=== PATIENT | female | born 1940 | race Caucasian/White ===

== ENCOUNTER 2017-01-11 14:25 | Emergency (ER) | payer MEDICARE ==
[2017-01-11 18:19] LABS: BASOPHILS 0.4 % (0-2); EOSINOPHILS 7.6 % (0-7); HEMATOCRIT 47.7 % (36.0-48.0); HEMOGLOBIN 16.4 g/dL (12-16); IMMATURE GRANULOCYTES 1.2 % (0-5); LYMPHOCYTES 25.9 % (15-50); MCH 31.7 pg (26.0-34.0); MCHC 34.4 g/dL (31.0-37.0); MCV 92.1 fL (80.0-100.0); MEAN PLATELET VOLUME 9.7 fL (7.4-10.4); MONOCYTES 7.5 % (2-11); NEUTROPHILS 57.4 % (40-80); PLATELET COUNT 224 10x3/uL (130-400); RBC 5.18 10x6/uL (4.00-5.40); RDW 12.7 % (11.5-14.5); WBC 13.6 10x3/uL (4.8-10.8)
== END 2017-01-11 19:23 | disposition home or self-care (01) ==
LOC: D.ER 14:25
PROVIDERS: Nurse Practitioner Acute Care
DX: L50.9 Urticaria, unspecified (principal); L29.9 Pruritus, unspecified; E11.9 Type 2 diabetes mellitus without complications

== ENCOUNTER → 2017-11-04 08:20 | Outpatient (CLI) | payer MEDICARE | END | disposition home or self-care (01) | LOC: D.NM 08:20 | DX: R10.13 Epigastric pain (principal); R11.0 Nausea ==

== ENCOUNTER → 2017-11-05 10:42 | Outpatient (CLI) | payer MEDICARE | END | disposition home or self-care (01) | LOC: D.RAD 10:15 | DX: R10.9 Unspecified abdominal pain (principal); E11.9 Type 2 diabetes mellitus without complications; Z85.038 Personal history of other malignant neoplasm of large intestine ==

== ENCOUNTER → 2017-11-08 08:38 | Outpatient (CLI) | payer MEDICARE | END | disposition home or self-care (01) | LOC: D.RAD 08:38 | DX: R14.1 Gas pain (principal); E11.9 Type 2 diabetes mellitus without complications; Z85.038 Personal history of other malignant neoplasm of large intestine ==

== ENCOUNTER 2018-01-04 07:40 | Day surgery (SDC) | payer MEDICARE ==
[~2018-01-04] VITALS: Ht 160 cm; Wt 60.8 kg
--- NOTE | ~2018-01-04 | OP ---
PATIENT NAME: MATTHEW TREJO MEDICAL RECORD: [id number] :44 LOCATION:D.OPS ADMISSION DATE: SURGEON: LARISSA BARR MD DATE OF OPERATION: 01/04/2018 PRINCIPAL DIAGNOSIS: History of tattooed colon polyp involving the distal ascending colon, it is a 3 cm polyp. POSTOPERATIVE DIAGNOSES: tattooed colon polyp involving the distal ascending colon, it is a cm polyp with 2 other sessile polyps, one 7 cm and one 8 cm. PROCEDURES: 1. Total colonoscopy to cecum. 2. Hot biopsy forceps polypectomies times 2. 3. Colonic polypectomy utilizing cold endoscopic biopsies and then ablation of the remaining polyp with the argon plasma food and drug inspector utilizing the right colon setting in the forced mode. SURGEON: Larissa Barr MD GIZZARD PULLER: None. BLOOD LOSS: Minimal. ANESTHESIA: General. COMPLICATIONS: None. ENDOSCOPIC COURSE: The patient was conveyed to the operating room electively on 01/04/2018. General anesthesia was induced by the anesthesia staff. The patient was placed in the Turner position. A digital rectal examination was performed. A colonoscope was inserted through the anus. It was easily advanced to the cecum. Upon withdrawal, I irrigated and aspirated extensively. The pullback was greater than 18-minute pullback. A combination of normal imaging and narrow band imaging were utilized. I dragged the folds. The prep was adequate. Two hot biopsy forceps polypectomies were performed. I then identified the tattooed polyp. This was biopsied multiply utilizing the cold endoscopic biopsy forceps and once I removed almost of the polyp with the cold endoscopic biopsy forceps, I then ablated the remaining polypoid tissue with the argon plasma food and drug inspector. There was no bleeding. A retroflexed view was obtained in the rectum. I then unretroflexed the scope and removed it under direct vision. I will see the patient in my office in 2-3 weeks. I will plan for another colonoscopy with the argon plasma food and drug inspector to take place in the operating room in 1 year. 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
[~2018-01-04 07:40] MED LIST: DIPHEDRYL25 MG PO; LOMOTIL TABLET1 TAB PO; METFORMIN HCL500 M1 PO; TOUJEO SOL300 UNIT/1 SC; VITAMIN B-122500 MCG PO; VITAMIN D5000 UNIT PO; ZYRTEC10 MG PO
[2018-01-04 07:59] LABS: HEMATOCRIT 41.3 % (36.0-48.0); HEMOGLOBIN 14.2 g/dL (12-16); MCH 31.3 pg (26.0-34.0); MCHC 34.4 g/dL (31.0-37.0); MCV 91.2 fL (80.0-100.0); MEAN PLATELET VOLUME 9.8 fL (7.4-10.4); RBC 4.53 10x6/uL (4.00-5.40); RDW 12.6 % (11.5-14.5); WBC 6.8 10x3/uL (4.8-10.8)
[2018-01-04 08:32] VITALS: BP 178/72; Ht 160 cm; Wt 60.8 kg
[2018-01-04 08:52] LABS: CALC OSMOLALITY 284 mosm/kg (275-300); CALCIUM 9.4 mg/dL (8.5-10.1); CARBON DIOXIDE 28.4 mmol/L (21.0-32.0); CHLORIDE - SERUM 104 mmol/L (98-107); CREATININE - SERUM 0.7 mg/dL (0.6-1.3); GLUCOSE 152 mg/dL (74-106); POTASSIUM - SERUM 3.8 mmol/L (3.5-5.1); SODIUM 142 mmol/L (136-145); UREA NITROGEN 10 mg/dL (7-18); eGFR NON AFRICAN AMERICAN 86 mL/min (90-120)
[2018-01-04] MEDS ORDERED: LEVOXYL50 MCG PO (09:19)
== END 2018-01-04 14:00 | disposition home or self-care (01) ==
LOC: D.OPS 07:40 → D.PAN 11:45 → D.OPS 11:45
PROVIDERS: Anesthesiology
DX: D12.2 Benign neoplasm of ascending colon (principal); D12.5 Benign neoplasm of sigmoid colon; Z01.812 Encounter for preprocedural laboratory examination

== ENCOUNTER → 2018-08-02 16:52 | Outpatient (CLI) | payer OTHER ==
[2018-01-04 08:32] VITALS: BMI 23.7
[~2018-08-02 16:52] MED LIST changes: +LEVOXYL50 MCG PO
== END | disposition home or self-care (01) ==
LOC: D.MAMMO 11:45
DX: Z12.31 Encounter for screening mammogram for malignant neoplasm of breast (principal)